=== PATIENT | male | born 1995 | race Caucasian/White ===

== ENCOUNTER 2018-12-07 10:44 | Emergency (ER) | payer MEDICAID ==
[2018-12-07 10:47] VITALS: BMI 32.6
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
--- NOTE | 2018-12-07 12:18 | CT ---
Date of service: 12/07/2018 PROCEDURE: CT HEAD WITHOUT CONTRAST. HISTORY: trauma COMPARISON: Not available TECHNIQUE: Axial computed tomography images were obtained through the head/brain without intravenous contrast. Radiation dose: Total exam DLP = 841.48 mGy-cm. This CT exam was performed using one or more of the following dose reduction techniques: Automated exposure control, adjustment of the mA and/or kV according to patient size, and/or use of iterative reconstruction technique. FINDINGS: HEMORRHAGE: No intracranial hemorrhage. BRAIN: No mass effect or edema. No atrophy or chronic microvascular ischemic changes. VENTRICLES: Unremarkable. No hydrocephalus. CALVARIUM: Unremarkable. PARANASAL SINUSES: Unremarkable as visualized. No significant inflammatory changes. MASTOID AIR CELLS: Unremarkable as visualized. No inflammatory changes. OTHER FINDINGS: None. IMPRESSION: Normal CT of the Head. No acute intracranial hemorrhage.
[2018-12-07 12:48] VITALS: BP 120/77; PULSE 72; RESP 16; TEMP 98.9
--- NOTE | 2018-12-07 13:17 | RAD ---
PROCEDURE: Right Hand Radiographs. HISTORY: trauma COMPARISON: None. TECHNIQUE: 3 views obtained. FINDINGS: BONES: Normal. No fracture. JOINTS: Subluxation 5th metacarpal phalangeal joint. SOFT TISSUES: Normal. OTHER FINDINGS: None. IMPRESSION: Subluxed 5th digit, no fracture detected.
[2018-12-07 13:54] VITALS: O2SAT 100
== END 2018-12-07 12:48 | disposition home or self-care (01) ==
LOC: H.ER 10:44
DX: S01.01XA Laceration without foreign body of scalp, initial encounter (principal); S60.229A Contusion of unspecified hand, initial encounter; Y09 Assault by unspecified means

== ENCOUNTER 2018-12-16 15:34 | Emergency (ER) | payer MEDICAID ==
[2018-12-16 15:34] VITALS: BMI 32.6
[2018-12-16 16:24] VITALS: BP 116/71; PULSE 70; RESP 18; TEMP 98.9; O2SAT 99
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
--- NOTE | 2018-12-16 17:32 | RAD ---
PROCEDURE: Right hand Radiographs. Three views. HISTORY: Hand injury COMPARISON: Right hand radiographs performed 12/07/18 FINDINGS: BONES: No acute displaced fracture. JOINTS: No dislocation. SOFT TISSUES: Unremarkable. No evidence of radiopaque foreign body. OTHER FINDINGS: None. IMPRESSION: No acute displaced fracture, dislocation, or significant joint effusion identified. If symptoms persist, or if there is continued clinical concern, x-ray follow-up in 7-10 days should be considered.
== END 2018-12-16 17:39 | disposition home or self-care (01) ==
LOC: H.ER 15:34
DX: Z48.02 Encounter for removal of sutures (principal)